=== PATIENT | male | born 1995 | race African-American/Black ===

== ENCOUNTER 2021-12-11 00:39 | Emergency (ER) | payer OTHER ==
[~2021-12-11] VITALS: Ht 188 cm; Wt 68.0 kg
[2021-12-11 00:50] VITALS: BP_SYST 117
[2021-12-11 02:03] VITALS: BP_SYST 119
== END 2021-12-11 02:03 | disposition home or self-care (01) ==
LOC: SED 00:39
DX: S60.221A Contusion of right hand, initial encounter (principal); F10.10 Alcohol abuse, uncomplicated; V47.6XXA Car passenger injured in collision with fixed or stationary object in traffic accident, initial encounter; Y93.89 Activity, other specified; Y92.89 Other specified places as the place of occurrence of the external cause; Y99.8 Other external cause status
CPT/HCPCS: 71045; 99284